=== PATIENT | male | born 1990 | race Caucasian/White ===

== ENCOUNTER 2024-03-30 11:54 | Emergency (ER) | payer SELFPAY ==
[2024-03-30 11:57] VITALS: BP 134/84; PULSE 68; RESP 16; TEMP 35.8; O2SAT 100; BMI 25.8
--- NOTE | 2024-03-30 12:25 | ED.GENADULT ---
HPI - General Adult General Chief complaint: Laceration/Wound Stated complaint: RT hand laceration at work Time Seen by Provider: 03/30/24 12:00 History of Present Illness HPI narrative: lac to R hand, pulling piece of wood off and caught hand on saw. 33-year-old man presenting to the emergency department with concern of injury to his right hand. Caught his hand on a saw I believe at work today as he was pulling a piece of wood from the saw. No loss of function. No reported loss of sensation. Bleeding has been controlled. Believes he is current on tetanus. Related Data Previous Rx's ?Medication ?Instructions ?Recorded cephalexin 500 mg capsule 500 mg PO TID #15 caps 03/30/24 Allergies Allergy/AdvReac Type Severity Reaction Status Date / Time No Known Drug Allergies Allergy Verified 03/30/24 12:01 Review of Systems Status of ROS: Reports: 6 or more systems reviewed and unremarkable except as noted in History and below PFSH PFS Social History Smoking Status: Never smoker Non-prescribed substance use: denies use Exam Narrative: Exam Narrative: Pleasant. NAD. Here with spouse and baby daughter. Favoring the right hand. No other injuries are noted. Does have a 1 inch gapping laceration on the dorsum of the right hand diagonal over the 5th MCP joint. The outer sheath of the tendon I think is just visible. Bleeds lightly when manipulated. Has good strength to resisted extension and flexion of this finger. Wound has already been cleansed by staff. Const: Vital Signs, click to edit/add: Vital Signs - 24 hr 03/30/24 11:57 Temperature 96.4 F L Pulse Rate [Pulse Oximeter] 68 Respiratory Rate 16 Blood Pressure [Le ft Upper Arm] 134/84 Pulse Oximetry 100 Oxygen Delivery Me thod Room Air Documenting provider has reviewed patient's vital signs: yes Course Vital Signs Vital signs: Initial Vital Signs Temperature 96.4 F L 03/30/24 11:57 Temperature Source Temporal Artery Scan 03/30/24 11:57 Pulse Rate 68 03/30/24 11:57 Respiratory Rate 16 03/30/24 11:57 Blood Pressure 134/84 03/30/24 11:57 Blood Pressure Mean 100 03/30/24 11:57 Blood Pressure Position Sitting 03/30/24 11:57 Pulse Oximetry 100 03/30/24 11:57 Oxygen Delivery Method Room Air 03/30/24 11:57 Vital Signs Temperature 96.4 F L 03/30/24 11:57 Pulse Rate 68 03/30/24 11:57 Respiratory Rate 16 03/30/24 11:57 Blood Pressure 134/84 03/30/24 11:57 Pulse Oximetry 100 03/30/24 11:57 Oxygen Delivery Method Room Air 03/30/24 11:57 Temperature 96.4 F L 03/30/24 11:57 Pulse Rate 68 03/30/24 11:57 Respiratory Rate 16 03/30/24 11:57 Blood Pressure 134/84 03/30/24 11:57 Pulse Oximetry 100 03/30/24 11:57 Oxygen Delivery Method Room Air 03/30/24 11:57 Medical Decision Making MDM Narrative Medical decision making narrative: Will need suturing. Does not appear to have sustained any other significant injury. I do not think any imaging is necessary. Injected with total of 2 mL of lidocaine with epinephrine. Further cleansing with pressure irrigation of normal saline by myself. Sutured with a total of 5 interrupted 5 0 Ethilon sutures. Very good wound approximation is achieved with controlled bleeding. Antibiotic ointment and Band-Aid placed. Do not think any splint is necessary here. See patient discharge plan for further discussion Discharge Plan Discharge Clinical Impression: Hand laceration Patient Disposition: Home, Self-Care Condition: Improved Additional Instructions: Sutures can be removed in 10 days. Avoid soaking until sutures are out but okay to get wet. Antibiotic ointment daily for 5 days and then to a dry dressing. Watch for spreading redness after 2 days, marked increase in pain/swelling, purulent drainage. Sending in antibiotic cephalexin as prophylaxis as discussed Prescriptions: New cephalexin 500 mg capsule 500 mg PO TID Qty: 15 0RF Follow Up/Referrals: Provider,Not a Local [Primary Care Provider] - Stand Alone Forms: [employer] Info Instructions
--- OUTSIDE RECORDS SUMMARY | 2024-03-30 13:13 | XMS_ITS | Clinical Summary ---
[facility] Address [address] [place] [address] Care Team Providers Care Golf Course Equipment Operator Name Role Phone Shira Garcia MD Primary Care Provider [phone] Source Comments You are receiving this document as you are listed as the primary care provider,follow-up provider, or the patient has been referred to you for consultation.This is in compliance with the Medicare and[facility] System[facility] EHR Incentive Program,which states Providers who transition their patient to another setting of careor provider of care or refers their patient to another provider of care shouldprovide summary care record for each transition of care or referral. Foound Allergies No known active allergies Medications Medication Sig Dispensed Refills Start Date End Date Status tobramycin (TOBREX) 0.3 % eye drop solution Place 1 Drop into right eye every 4 hours. 5 mL 02/24/2019 Active Active Problems No known active problems Immunizations Name Administration Dates Next Due DTP 10/13/1997, 6,07/12/1993,07/12/1993 ,1992,1992,1992, 3 DTaP 10/13/1997,04/29/1997 DTaP/Hib 07/26/1995 HepB Ped/Adol (0-18 yrs) 02/07/2006,10/22/2005,0 02/15/2005 Hib (ActHIB) 07/12/1993,1992,1992 Hib (HbOC) 07/26/1995,07/12/1993,1992 ,1992 MMR 02/15/2005,07/26/1995,07/26/1995 OPV, Trivalent (Orimune or tOPV) 998,10/13/1997,04/29/1997,07/12/1993 ,07/12/1993,1992,1992, 3,1992 Tdap 02/15/2005 Varicella 10/13/1997,10/13/1997 Family History Medical History Relation Name Comments Amblyopia/Strabismus Negative Family History Blindness Negative Family History Cancer, Breast Negative Family History Cancer, Colon Negative Family History Cerebrovascular Disease Negative Family History Coronary Artery Disease Negative Family History Diabetes, Type II Negative Family History Hyperlipidemia Negative Family History Hypertension Negative Family History Relation Name Status Comments Mother Alive Susan Maternal Grandmother Alive Paternal Grandfather Alive Paternal Grandmother ? cance r Sister 1 Alive Angelita-lives wi th mom-1988 Sister 2 Alive Annie-lives wi th dad Social History Tobacco Use Types Packs/Day Years Used Date Smoking Tobacco: Never Alcohol Use Standard Drinks/Week Comments Not Asked 0 (1 standard drink = 0.6 oz pur e alcohol) Sex and Gender Information Value Date Recorded Sex Assigned at Not on file Gender Identity Not on file Sexual Orientation Not on file Last Filed Vital Signs Vital Sign Reading Time Taken Comments Blood Pressure 120/50 08/03/2009 1:58 PM [employer]NAGER [employer] Pulse 76 08/03/2009 1:58 PM [employer]NAGER [employer] Temperature 36.1 ??C (97 ??F) 08/22/2006 3:20 PM MANAGER [employer] Respiratory Rate 18 08/03/2009 1:58 PM MANAGER [employer] Oxygen Saturation - - Inhaled Oxygen Concentration - - Weight 68 kg (150 lb) 08/03/2009 1:58 PM MANAGER [employer] Height 174.6 cm (5' 8.75) 08/03/2009 1:58 PM CS T Body Mass Index 22.31 08/03/2009 1:58 PM [employer]NAGER AG[employer] Plan of Treatment Health Maintenance Due Date Last Done Comments Hep C Screening (Preventive Services) 1992 HIV Screening (Preventive Services) 2008 Adult Preventive Visit 2010 08/24/200 6, 02/15/2005, 04/29/1997, Additional history exists DTaP/Tdap/Td (7 - Tdap) 02/15/2015 02/16/20 05, 10/13/1997, 10/13/1997, Additional history exists COVID-19 Vaccine ( season) 2024 Influenza (#1) 2024 Zoster/Shingles (1 of 2) 2042 Hib Completed 07/26/1995, 02/1996, 07/12/1993, Additional history exists IPV (Polio) Completed 10/13/1997, 09/16, 04/29/1997, Additional history exists HepB Completed 02/07/2006, 01/2006, 02/15/2005 HPV Vaccine Aged Out No longer eligi ble based on patient's age to complete this topic HepA Aged Out No longer eligi ble based on patient's age to complete this topic Infant RSV Aged Out No longer eligi ble based on patient's age to complete this topic MCV4 Aged Out No longer eligi ble based on patient's age to complete this topic Pneumococcal Aged Out No longer eligi ble based on patient's age to complete this topic Care Teams Golf Course Equipment Operator Relationship Specialty [place] [id number] [place] [address] PCP - General 08/23/06
== END 2024-03-30 13:37 | disposition home or self-care (01) ==
PROVIDERS: Emergency Provider Family Medicine
DX: S61.411A Laceration without foreign body of right hand, initial encounter (principal); W29.3XXA Contact with powered garden and outdoor hand tools and machinery, initial encounter; Y99.0 Civilian activity done for income or pay
CPT/HCPCS: 12001; 99283; 99284